=== PATIENT | female | born 1995 | race African-American/Black ===

== ENCOUNTER 2016-05-03 13:41 | Emergency (ER) | payer BC ==
[~2016-05-03] VITALS: Ht 177.8 cm; Wt 65.0 kg
[2016-05-03 13:49] VITALS: TEMP 38.9; Ht 177.8 cm; Wt 65.0 kg
[2016-05-03] MEDS ORDERED: MULT-506 PO (14:32)
[2016-05-03] MEDS ORDERED: METH500C8 (14:32)
[2016-05-03] MEDS ORDERED: BIOT1CAP8 PO (14:32)
[2016-05-03] MEDS ORDERED: ZINC30TA3 (14:32)
[2016-05-03] MEDS ORDERED: IBUP-1050 PO (14:32)
[2016-05-03] MEDS ORDERED: VITACAP26 PO (14:32)
[2016-05-03] MEDS ORDERED: AMOXICILLIN 250 MG CAP PO STA (14:37)
[2016-05-03] MEDS ORDERED: PRED50TA PO (14:39)
[2016-05-03] MEDS ORDERED: AMOX500C3 PO (14:39)
--- NOTE | 2016-05-03 14:40 | EMERGENCY ROOM VISIT NOTE ---
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 Her symptoms started about 3 days ago. She started taking DayQuil, NyQuil, ibuprofen and vitamins. She subjectively has felt feverish, sweaty and had chills. She has not recorded her temperature at home. She reports bilateral throat pain, left slightly worse than right. She has pain and difficulty swallowing but she is able to handle her own secretions. She did take ibuprofen about 2 hours prior to coming to the emergency department. She denies any sick contacts with similar symptoms. She denies any other cold or upper respiratory symptoms. No rash. Denies any posterior neck pain or stiffness. No difficulty breathing. REVIEW OF SYSTEMS: Review of systems as per HPI. All other systems reviewed were negative. 10 systems reviewed. PMH: Electronic medical records are reviewed and summarized as above/below. See Problem List. SOCIAL HISTORY: Patient lives in the dorm with a roommate. Nonsmoker. College student from [place]. PHYSICAL EXAM: Vital Signs: Reviewed Nurse's notes. Temperature 38.9C orally. She is noted to be tachycardic. MENTAL STATUS: Alert and cooperative. Nontoxic appearing. HEAD: Atraumatic, without temporal or scalp tenderness. EYES: PERRL, EOMI, no discharge or injection. EARS: Tympanic membranes intact, not inflamed, have normal contour. External canals clear. NOSE: Nares patent, turbinates moist without rhinorrhea. MOUTH: Mucous membranes moist, no lesions, tongue and gums appear normal. THROAT: Tonsils are erythematous, swollen and exudate is noted bilaterally. Uvula is midline. No abscesses appreciated. Airway is patent. NECK: Supple, nontender, cervical chain lymphadenopathy noted. HEART: Tachycardic rate and rhythm without murmurs, ectopy, gallops, or rubs. LUNGS: Clear to auscultation and breath sounds equal, no wheezes, rales, or rhonchi. SKIN: Normal. NEUROLOGICAL: Sensory and motor functions grossly intact. Normal gait. ED course: The patient was seen and evaluated as above. She has a fever, exudative tonsillitis and cervical lymphadenopathy and will be treated clinically. I did discuss with her the possibility of mono however she has only been ill for a few days, and did not think that testing with any laboratory studies was indicated at this time. I did discuss performing a rapid strep, but advised that it would not change my treatment recommendations and she is in agreement to defer. She does not have any evidence for retropharyngeal or peritonsillar abscess. She'll be placed on amoxicillin. She was also given a short course of oral prednisone. She was educated on the worrisome signs or symptoms for which she should return to the emergency department. Problem List Medical Problems: (1) Asthma Status: Chronic Surgical Problems: (1) S/P ACL reconstruction Status: Resolved Current/Historical Medications Scheduled Amoxicillin (Amoxil), 500 MG PO BID Biotin (Biotin), 1 CAP PO DAILY Multivitamin (Multivitamin), 1 TAB PO DAILY Prednisone (Prednisone), 50 MG PO DAILY Vitamins C & E (Vitamin C), 1 CAP PO DAILY Scheduled PRN Ibuprofen (Advil), 200-600 MG PO Q4H PRN for Pain Miscellaneous Medications Methylsulfonylmethane (Msm), Unknown Dose Zinc Gluconate (Zinc), Unknown Dose Allergies Coded Allergies: No Known Allergies (Unverified , 05/03/16) Vital Signs Date Time Temp Pulse Resp B/P Pulse Ox O2 Delivery O2 Flow Rate FiO2 05/03/16 14:49 70 20 120/68 99 05/03/16 13:49 38.9 129 18 121/78 95 Room Air Medications Administered Medications (Trade) Dose Ordered Sig/Suzette Route Start Time Stop Time Status Last Admin Dose Admin Amoxicillin (Amoxil Cap) 500 mg NOW STAT PO 05/03/16 14:37 05/03/16 14:38 DC 05/03/16 14:44 500 MG Prednisone (PredniSONE TAB) 60 mg NOW STAT PO 05/03/16 14:37 05/03/16 14:38 DC 05/03/16 14:46 60 MG Departure Information Impression Primary Impression: Tonsillitis with exudate Prescriptions Amoxicillin (AMOXIL) 500 Mg Cap 500 MG PO BID, #20 CAP Prov: Elli Patterson PA 05/03/16 Prednisone (Prednisone) 50 Mg Tab 50 MG PO DAILY for 5 Days, #5 TAB Prov: Elli Patterson PA 05/03/16 Referrals No Doctor, Assigned (PCP) Patient Instructions [facility] Additional Instructions Amoxil 500mg: Take one pill twice times daily for 10 days for your throat infection. All antibiotics can cause diarrhea. If this occurs and you feel worse or it does not resolve in 1-2 days follow up with your doctor or return to the Emergency Department as this could be signs of serious underlying problems. Any medication can cause an allergic reaction, stop the pills immediately and return to the ER for rash, hives, breathing difficulties, or swelling. Prednisone 50mg: Once daily until the prescription is finished. It is best to take this earlier in the day as some patients note occasional difficulty falling asleep when taken in the late evening. Acetaminophen(Tylenol) may be used for fever or pain. Use 1000mg every six hours as needed. Avoid using more than 3000mg in a 24 hour period. (AND/OR) Ibuprofen(Motrin, Advil) may be used for fever or pain. Use 600mg every six hours as needed. Take with food. Avoid using more than 2400mg in a 24 hour period. Do not use 2400mg per day for more than three consecutive days without physician direction. Prolonged inappropriate use can lead to stomach upset or ulcers. Rest and drink plenty of fluids. Controlling your fever with Tylenol and Ibuprofen as above will make you feel better. Continue current medications. Return to the ER for worsening throat pain, inability to swallow, severe headache, neck stiffness, chest pain, difficulty breathing, persistent fevers, vomiting, worsening of your condition, or as needed. Follow up with [facility] next week for a recheck of your current condition.
[2016-05-03 14:49] VITALS: BP 120/68; PULSE 70; O2SAT 99
== END 2016-05-03 14:51 | disposition home or self-care (01) ==
LOC: C.EDB 13:44
DX: J03.90 Acute tonsillitis, unspecified (principal); J45.909 Unspecified asthma, uncomplicated; Z87.828 Personal history of other (healed) physical injury and trauma